=== PATIENT | female | born 1970 | race Caucasian/White ===

== ENCOUNTER → 2017-06-26 | Outpatient (CLI) | payer OTHER ==
[2016-01-19 15:34] VITALS: BP 139/88
--- NOTE | 2017-06-28 08:48 | VAS ---
HISTORY: TIA Study: Bilateral carotid Doppler ultrasound Comparison: No priors Technique: Grayscale, color and duplex Doppler imaging of the carotid arteries is provided. Findings: Carotid and vertebral arteries flow cephalad bilaterally. Very mild, non ulcerative plaque materials are present involving the right carotid bulb region. Peak systolic arterial velocity in the right ICA is 77.2 centimeters/second. Peak systolic arterial velocity in the left ICA is 99.9 centimeters/seco nd. ICA/CCA ratios are as follows: On the right 1.08 and on the left 1.12. Small nodules are present involving the inferior poles of both thyroid lobes. The nodule on the right is isoechoic/mildly hypoe choic and measures up to about 11.5 mm in maximum diameter. The nodule in the left lower pole region is smaller measuring up to about 7 mm in diameter and is mixed isoechoic and hypoechoic. Both nodules should simply be followed with thyroid ultrasound in 12 months. IMPRESSION: No hemodynamically significant stenosis is seen involving either cervical carotid system. Small lower pole thyroid nodules bilaterally. The should be followed with ultrasound in 12 months. Reported By:
== END ==
LOC: RAD 12:46
PROVIDERS: ATTEND Nurse Practitioner
DX: G45.8 Other transient cerebral ischemic attacks and related syndromes (principal)
CPT/HCPCS: 93880